=== PATIENT | male | born 1945 | race Caucasian/White ===

== ENCOUNTER 2017-11-13 10:10 | Day surgery (SDC) | payer OTHER ==
--- NOTE | 2017-11-08 09:40 | HP ---
DATE OF ADMISSION: 11/13/2017 DATE OF DICTATION: 10/01/2017 BRIEF HISTORY: This is a 72-year-old gentleman who underwent an ultrasound for abdominal pain. The ultrasound demonstrated findings consistent with cholelithiasis without evidence of acute cholecystitis. There was fatty infiltration of the liver. No obvious liver masses. Patient has been referred here for a laparoscopic cholecystectomy. Patient denies a history of fatty food intolerance. No change in stool color or urine color. PAST MEDICAL HISTORY: Significant for heart disease, coronary artery disease, hypertension, hypercholesterolemia, insulin-dependent diabetes, arthritic changes. PAST SURGICAL HISTORY: Patient has had an angioplasty in 1998 and underwent a CABG in 2004. ALLERGIES: None. MEDICATIONS: Baby aspirin, fenofibrate, folic acid, glyburide, Janumet, , methotrexate, Toprol, NovoLog, and Lantus. SOCIAL HISTORY: Patient smokes cigars on occasion. He does not drink. PHYSICAL EXAMINATION: HEENT: There is no icterus. Abdomen: Soft, nontender, nondistended. IMPRESSION/PLAN: Symptomatic cholelithiasis, chronic cholecystitis. This is a 72-year-old gentleman with known gallstones on his ultrasound. There is no evidence of acute cholecystitis on his most recent ultrasound dated June 2017 from [facility]. Given the patient's medical comorbidities and diabetes, he is more likely to have an event that goes unrecognized and will present in a much more serious condition, and therefore, I would recommend proceeding with a cholecystectomy electively. Patient will be scheduled for a laparoscopic cholecystectomy, possible open. The indications, alternatives, and complications of the procedure were discussed. Questions answered. We will plan to obtain written consent the day of surgery. ANTHONY WHITE M.D. [id number]
[2017-11-08 11:51] VITALS: BMI 27.0
[~2017-11-13 10:10] MED LIST: ceFAZolin SODIUM 1 GM VIAL IVPB ONE
[2017-11-13] MEDS ORDERED: ERTAPENEM SODIUM 1 GM in SODIUM CHLORIDE 100 ML IVPB ONE (12:00)
[2017-11-13] MEDS ORDERED: LACTATED RINGERS SOLUTION 1,000 ML IV SCH ×2 (12:00→14:45)
[2017-11-13] MEDS ORDERED: fentaNYL CITRATE 250 MCG/5 ML VIAL ONE (12:55)
[2017-11-13] MEDS ORDERED: ROCURONIUM BROMIDE 50 MG/5 ML VIAL ONE (12:56)
[2017-11-13] MEDS ORDERED: PROPOFOL 20 ML ONE (12:56)
[2017-11-13] MEDS ORDERED: MIDAZOLAM HCL 2 MG/2 ML SINGLE DOSE VIAL ONE ×2 (12:56)
[2017-11-13] MEDS ORDERED: ERTAPENEM SODIUM 1 GM VIAL IVPB ONE (13:12)
[2017-11-13] MEDS ORDERED: ONDANSETRON 4 MG/2 ML VIAL ONE (13:31)
[2017-11-13] MEDS ORDERED: DEXAMETHASONE SOD PHOSPHATE 4 MG/1 ML VIAL ONE (13:31)
[2017-11-13] MEDS ORDERED: NEOSTIGMINE METHYLSULFATE 0.5 MG/ML - 10 ML MDV ONE (14:06)
[2017-11-13] MEDS ORDERED: GLYCOPYRROLATE 0.2 MG/1 ML VIAL ONE (14:06)
[2017-11-13] MEDS ORDERED: ONDANSETRON 4 MG/2 ML VIAL IVPUSH PRN ×3 (14:39→16:01)
[2017-11-13] MEDS ORDERED: ACETAMINOPHEN 325 MG TABLET (FP) PO PRN ×2 (15:58→16:01)
[2017-11-13] MEDS ORDERED: morphine SULFATE 4 MG/ML VIAL IVPB PRN (15:58)
[2017-11-13] MEDS ORDERED: D5-1/2NS+20 MEQ KCL - 20 MEQ/1,000 ML INFUS.BAG IV SCH (16:00)
[2017-11-13] MEDS ORDERED: morphine SULFATE 4 MG/ML VIAL IVPUSH PRN (16:22)
--- NOTE | 2017-11-13 16:34 | OP ---
DATE OF OPERATION: 11/13/2017 PREOPERATIVE DIAGNOSIS: Symptomatic cholelithiasis. POSTOPERATIVE DIAGNOSIS: Symptomatic cholelithiasis. PROCEDURE: Laparoscopic cholecystectomy, peritoneal lavage. SURGEON: Preston Calzada M.D. STERILE INSTRUMENT TECHNICIAN: Paul Russell M.D. ANESTHESIOLOGIST: Rosa Isela Borges M.D. ANESTHESIA: General. ESTIMATED BLOOD LOSS: Minimal. SPECIMEN: Gallbladder. INDICATION FOR PROCEDURE: This is a 72-year-old gentleman with abdominal pain underwent an ultrasound consistent with cholelithiasis. Patient was documented to have biliary disease and therefore is here today for a laparoscopic cholecystectomy. DESCRIPTION OF PROCEDURE: Patient is identified, and appropriately positioned on operating room table. After placement of general anesthesia, the abdomen was prepped and draped in the usual sterile fashion with Chloraprep. An infraumbilical incision was made, deepened through the subcutaneous tissue. The fascia was divided sharply, the peritoneum incised, and under direct vision a port was placed. The remaining ports placed under direct vision as well. The gallbladder identified in the right upper quadrant. There are findings consistent with chronic cholecystitis. The omentum was plastered to body and dome of the gallbladder. The omentum was bluntly. The gallbladder reflected over the dome of the liver in standard fashion, going from lateral to medial. The neck and infundibulum of the gallbladder identified, followed by the cystic duct. The cystic duct circumferentially isolated. Cystic duct clipped and then divided. Cystic artery identified more medially and posteriorly. This was subsequently clipped and divided in a similar fashion, and the gallbladder itself was removed from liver bed with electrocautery. Prior to complete removal, the liver bed was irrigated, the operative field noted to be hemostatic. The specimen was placed in an Endocatch bag and brought out through the umbilical port site. The right upper quadrant was copiously irrigated with warm saline. The irrigant retrieved. The operative field noted to be hemostatic. Ports removed. Port sites hemostatic as well. The fascia at the umbilical port site were reapproximated with interrupted 0 Vicryl suture. All skin closed with 4-0 subcuticular Biosyn followed by Dermabond. At the conclusion of this case, sponge and needle counts were correct. ATTESTATION: Brief operative note handwritten on the preprinted form. [facility] queried prior to giving any narcotics. Kimberly BUTTS [id number]
[2017-11-13] MEDS ORDERED: MORPHINE SULFATE 10 MG/1 ML *VIAL ONE (16:46)
[2017-11-13] MEDS: INSULIN SLIDING SCALE (NOVOLOG) 1 VIAL SQ SCH ×2 (18:13→22:30)
[2017-11-13] MEDS: oxyCODONE HCL 5 MG TABLET PO PRN (18:55)
[2017-11-13] MEDS ORDERED: INSULIN (NOVOLOG) ASPART 100 UNITS/ML 10ML VIAL ONE (20:47)
[2017-11-14] MEDS: oxyCODONE HCL 5 MG TABLET PO PRN ×2 (04:27→09:55)
[2017-11-14] MEDS: INSULIN SLIDING SCALE (NOVOLOG) 1 VIAL SQ SCH ×2 (06:27→10:43)
[2017-11-14 06:43] VITALS: TEMP 98.5
[2017-11-14] MEDS ORDERED: INSULIN (NOVOLOG) ASPART 100 UNITS/ML 10ML VIAL ONE (06:47)
[2017-11-14] MEDS ORDERED: glyBURIDE 5 MG TABLET (UD) PO SCH (07:00)
[2017-11-14] MEDS ORDERED: TAMSULOSIN HCL 0.4 MG CAP.ER.24H (FP) PO SCH (10:00)
[2017-11-14] MEDS ORDERED: metoPROLOL SUCCINATE 25 MG TAB.SR.24H (FP) PO SCH (10:00)
[2017-11-14] MEDS ORDERED: PANTOPRAZOLE SODIUM 40 MG VIAL IVPUSH SCH (10:00)
[2017-11-14] MEDS ORDERED: ENOXAPARIN NA (PORCINE) 40 MG/0.4 ML DISP.SYRIN SQ SCH ×2 (10:00)
[2017-11-14] MEDS ORDERED: ASPIRIN COATED 81 MG TABLET.EC PO SCH (10:00)
[2017-11-14 11:31] VITALS: BP 142/79; PULSE 100
--- NOTE | 2017-11-15 15:37 | PATH ---
Surgical Pathology Report Patient Name: SUSANA DRISCOLL JR Med. Rec. #: [id number] /Age/Gender: 1945 (Age: 72) / M Account: [id number] Location: AMBULATORY SURG Taken: 11/13/2017 Received: 11/14/2017 Reported: 11/15/2017 Physicians: Preston Calzada Specimen(s) Received GALLBLADDER Clinical History Cholelithiasis Final Diagnosis GALLBLADDER, CHOLECYSTECTOMY: CHRONIC CHOLECYSTITIS AND CHOLELITHIASIS. Electronically Signed Homer Thomas M.D. Gross Description Received in formalin, labeled "gallbladder," is a 7 x 3 x 2 cm. gallbladder with a 0.2 cm. in length portion of cystic duct attached. The outer surface varies from smooth to shaggy. The lumen contains multiple black choleliths ranging in size from 0.3-0.7 cm. The mucosa is green and velvety. The wall of the gallbladder measures 0.5 cm. in thickness. [employer] sections are submitted in one cassette. [facility]AI/11/14/2017 [place]/11/14/2017
== END 2017-11-14 13:45 | disposition home or self-care (01) ==
LOC: JASUSAT 10:10 → J6S 17:30 → JASUSAT 11-14 13:45
PROVIDERS: ATTEND Surgery
PROC: 0FT44ZZ Resection of Gallbladder, Percutaneous Endoscopic Approach (ICD-10-PCS; principal; 2017-11-13 12:00)
DX: K80.80 Other cholelithiasis without obstruction (principal)
CPT/HCPCS: 82962; 88304-TC; 94760